=== PATIENT | female | born 1995 ===

== ENCOUNTER → 2016-11-16 | Outpatient (REF) | LOC: WSOH 13:23 | DX: Z02.89 Encounter for other administrative examinations (principal) ==

== ENCOUNTER → 2016-11-23 | Outpatient (REF) | LOC: WSOH 09:06 | DX: Z02.89 Encounter for other administrative examinations (principal) ==

== ENCOUNTER → 2016-11-24 | Outpatient (REF) | LOC: WSOH 13:55 | DX: Z02.89 Encounter for other administrative examinations (principal) ==

== ENCOUNTER → 2016-11-24 | Outpatient (REF) | LOC: WSOH 13:54 | DX: Z02.89 Encounter for other administrative examinations (principal) ==

== ENCOUNTER → 2016-11-27 | Outpatient (REF) | LOC: WSOH 11:22 | DX: Z02.89 Encounter for other administrative examinations (principal) ==

== ENCOUNTER → 2016-12-01 | Outpatient (REF) | LOC: WSOH 15:43 | DX: Z02.89 Encounter for other administrative examinations (principal) ==

== ENCOUNTER → 2016-12-29 | Outpatient (REF) | LOC: WSOH 10:09 | DX: Z23 Encounter for immunization (principal) ==